=== PATIENT | male | born 1985 | race Caucasian/White ===

== ENCOUNTER 2022-08-20 14:58 | Observation (INO) | payer OTHER ==
[~2022-08-20] VITALS: Ht 177.8 cm; Wt 125.5 kg
[2022-08-20] MEDS ORDERED: HYDROCODON-ACE1 EA10 PO (19:32)
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
--- NOTE | 2022-08-21 00:43 | NUR ---
PT SNORING RESP EVEN 22 RATE, HOB UP, MOUTH OPEN HR 107 AND RA 97%. PT HAS PULSE OX ON AND CALL LIGHT IN REACH.
--- NOTE | 2022-08-21 03:03 | NUR ---
pt continues to sleep- snoring regularly, hr in the 95's- sats 95% room air.
--- NOTE | 2022-08-21 05:02 | NUR ---
EMPTIED YHE URINAL. 500 ML DARK URINE.
--- NOTE | 2022-08-21 05:08 | NUR ---
in to assist pt with urinal - void qs- clear urine. denies need for pain meds yet - sore, abd non tender just sore - mostly sternum area. hr 91 on monitor - call light in reach - will re check at 6 am with scheduled pain meds.
--- NOTE | 2022-08-21 05:38 | NUR ---
PO TYLENOL GIVEN SCHEDULED FOR GENERALIZED PAIN, ABD NOT PRATICULARLY BOTHERSOME, NON TENDER - VOIDING WNL - IV FUSING, ALERT AND ORIENTED. CALL LIGHT IN REACH I/O AND VITALS COMPLETE - HR IMPROVED.
--- NOTE | 2022-08-21 06:13 | NUR ---
99 oral temp noted - pt given and taught IS - demonstrated great use, up to 1000 on meter. enc to use and cough/deep breath.
--- NOTE | 2022-08-21 07:16 | NUR ---
REPORT RECEIVED FROM GRACIA JIMENEZ. PT RESTING IN BED, WATCHING TV. PT DENIES PAIN AND NAUSEA. PT REQUESTS FOOD AND FLUID BUT STATES HE UNDERSTANDS WHY HE IS NPO. PT DENIES ADDITIONAL REQUESTS OR COMPLAINTS. CALL LIGHT WITHIN REACH. BED RAILS UP.
--- NOTE | 2022-08-21 08:00 | NUR ---
DR AUSTIN UPDATED ON PT STATUS AND REQUESTS FOR FOOD. ORDERS GIVEN TO ADVANCE PT TO CLEAR LIQUID DIET. JELLOW AND WATER PROVIDED. KITCHEN CALL FOR CLEAR LIQUID TRAY.
--- NOTE | 2022-08-21 08:45 | NUR ---
MORNING ASSESSMENT DUE. PT WATCHIG TV. PT REPROTS / SORENESS THROUGH STERNAL AREA, LOWER ABDOMEN AND RIGHT FOOT. PT DECLIENS PAIN MEDICAITON STATING "ITS JUST A LITTLE ACHE." PT ALERT AND OREINTED TO ALL. CHEERFUL AND CARRYING OUT CONVERSATION NORMALLY. PUPILS EQUAL BILATERALLY. STAND BY ASSIST UP TO CHAIR. PT LIMPS RELATED TO RIGHT FOOT SORENESS. LUGN SOUNDS CLEAR. HEART TONES REGULAR. CMS INTACT. PERIPHERAL PULSES AND SENSATION WNL. ABDOMINAL BURSING UNCHANGED. SUPERFICIAL TENDERNESS TO ABDOMEN WITH PALPATION. BOWEL TONES ACTIVE. BRUSING NOTED TO RIGHT FOOT AND 3-5TH DIGITS. ABRASION TO RIGHT KNEE REMAINS COVERED. MINMAL RED DRAINAGE NOTED. PT ADVANCED TO CLEAR LIQUID DIET. CLEARS PROVIDED PER PT PREFERENCE. BENY CASE MANAGEMENT TO ROOM TO VISIT WITH PT. NO ADDITIONAL NEEDS AT THIS TIME. CALL LIGHT WIHTIN REACH. PT REMAINS UP TO CHAIR.
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
--- NOTE | 2022-08-21 09:48 | NUR ---
THIS RN TO ROOM TO CHECK ON PT. PT REMAINS UP TO CHAIR. ATE ALL OF CLEAR LIQUID TRAY. DENIES INCREASED PAIN OR NAUSEA, PT REPORTS FEELING "PRETTY GOOD." PT UP TO RESTROOM WITH STAND BY ASSIST. NO ADDITIONAL NEEDS AT THIS TIME. CALL LIGHT WIHTIN REACH. PT VERBALIZES UNDERSTANDING OF CALL LIGHT.
--- NOTE | 2022-08-21 10:02 | NUR ---
PTS FRIEND, WILL, ARRIVED TO VISIT WITH PT. GUIDED TO ROOM. PT UPDATING HIS FRIEND ON PLAN OF CARE AND HIS CONDITION. NO ADDITIONAL NEEDS. CALL LIGHT WITHIN REACH.
--- NOTE | 2022-08-21 10:59 | NUR ---
MED REC COMPLETE
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
--- NOTE | 2022-08-21 11:50 | NUR ---
DR AUSTIN UPDATED REGARDING PTS REQUESTS OF DISCHRAGE AND CONDITION. DR AUSTIN STATES TO ADVANCE PT TO REGULAR DIET FOR LUNCH. DIET ADVANCED. PT UPDATED ON PLAN OF CARE AND VERBALIZES UNDERSTANDING. NO ADDITONAL NEEDS AT THIS TIME. LUNCH ORDER PLACED FOR PT IN ADDITION TO FOOD HE IS EATING FROM HOME. CALL LIGHT WIHTIN REACH. BED RAILS UP.
--- NOTE | 2022-08-21 12:25 | NUR ---
WENT IN PATIENT'S ROOM TO DO HIS VITALS. PATIENT WAS SITTING UP IN HIS CHAIR.
--- NOTE | 2022-08-21 12:40 | NUR ---
THIS RN TO ROOM TO CHECK ON PT. PT FINISHED WITH LUNCH, REPORTS AN ADDITIONAL NORMAL BOWEL MOVEMENT, SOFT, FORMED, BROWN. PT DENIES NAUSEA, REPORTS 2/10 PAIN IN ABDOMEN AND RIGHT FOOT. PT REPORTS HE IS READY FOR DISCHARGE. DR. AUSTIN TO ROOM TO REVIEW PLAN FOR DISCHRAGE WITH PT. PT VERBALIZES UNDERSTANDING AND STATES HIS QUESTIONS HAVE BEEN ANSWERED. IV DC'D PER PROTOCOL. NEW ORDERS GIVEN FOR NEW DRESSING TO RIGHT KNEE ABRASION. BACITRACIN, NON ADHEARANT GAUZE AND SHIRA WRAP APPLIED PER MD ORDER. SUPPLIES GIVEN TO PT TO USE AT HOME FOR DRESSING CHANGE. PT UP TO DRESS SELF. VITAL SIGNS STABLE. AWAITING DISCHARGE PAPERWORK , NO ADDITONAL NEEDS AT THIS TIME. CALL LIGHT WIHTIN REACH. PTS FRIEND AT BEDSIDE.
[2022-08-21] MEDS ORDERED: ACETAMINOPHEN500 MG PO (13:02)
[2022-08-21] MEDS ORDERED: ACETAMINOPHEN325 M1 PO (13:03)
[2022-08-21] MEDS ORDERED: BACITRACIN3.5 GM OD (13:03)
--- NOTE | 2022-08-21 13:33 | NUR ---
DISCHARGE INSTRUCTIONS GIVEN TO PATIENT, NEW DRESSING APPLIED TO LEFT SECOND TOE. PATIENT GIVEN EXTRA DRESSINGS FOR TOE. PATIENT GIVEN WHEELCHAIR RIDE TO FRONT DOOR.
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
--- NOTE | 2022-08-24 20:48 | EKG ---
[facility] [address] [facility] [place] [address] Signed Sinus tachycardia Incomplete right bundle branch block Possible Anterior infarct , age undetermined Abnormal ECG No previous ECGs available Confirmed by Shahram Kaur MD () on 08/24/2022 8:48:13 PM Electronically Signed By: SHAHRAM KAUR MD 08/24/222047 PATIENT NAME: BELLA MARTIN Electrocardiogram DATE OF : 81 PHYSICIAN: SHAHRAM KAUR MD REPORT #: [id number] REPORT IS CONFIDENTIAL AND NOT TO BE RELEASED WITHOUT AUTHORIZATION
== END 2022-08-21 13:25 | disposition home or self-care (01) ==
LOC: ED 14:58 → MS 15:01
PROVIDERS: ADMIT Surgery; ATTEND Surgery
DX: S30.1XXA Contusion of abdominal wall, initial encounter (principal); S80.211A Abrasion, right knee, initial encounter; S90.811A Abrasion, right foot, initial encounter; R00.0 Tachycardia, unspecified; E66.9 Obesity, unspecified; V44.5XXA Car driver injured in collision with heavy transport vehicle or bus in traffic accident, initial encounter; Z20.822 Contact with and (suspected) exposure to COVID-19; Z68.38 Body mass index [BMI] 38.0-38.9, adult
CPT/HCPCS: 36415; 71046; 73110; 73630; 74177; 80048; 80053; 80076; 83690; 85025; 87502; 93005; 93010; 99285-25; A9270; G0378; J2060; J7030; J7121; Q9967; U0003